=== PATIENT | female | born 1975 | race Caucasian/White ===

== ENCOUNTER → 2019-12-11 | Outpatient (CLI) | payer OTHER ==
--- NOTE | 2019-12-11 13:19 | US ---
EXAMINATION TYPE: US kidneys/renal and bladder DATE OF EXAM: 12/11/2019 COMPARISON: NONE CLINICAL HISTORY: R31.21 microscopic hematuria. Microscopic hematuria x many years. Back pain. No h x of renal stones. EXAM MEASUREMENTS: Right Kidney: 10.8 x 5.2 x 4.7 cm Left Kidney: 10.4 x 4.9 x 5.8 cm Right Kidney: Medial anechoic lesion at hilum = 1.7 x 1.1 cm Left Kidney: No hydronephrosis or masses seen Bladder: distended, anechoic Bilateral Jets seen There is no evidence for hydronephrosis at this point in time. No nephrolithiasis is seen. No madina s are identified. The urinary bladder is anechoic. Bilateral ureteral jets are seen. IMPRESSION: Medial cyst right kidney. Otherwise unremarkable study.
== END | disposition home or self-care (01) ==
LOC: RADUSWWP 12:14
PROVIDERS: ATTEND Family Medicine
DX: N28.1 Cyst of kidney, acquired (principal)
CPT/HCPCS: 76770

== ENCOUNTER → 2021-09-15 | Outpatient (CLI) | payer OTHER ==
[2021-09-15 09:16] LABS: INR 0.9 (<1.2); Partial Thromboplastin Time 25.9 sec (22.0-30.0)
[2021-09-15 10:40] LABS: Basophils # (A) 0.07 X 10*3/uL (0.00-0.10); Eosinophils # (A) 0.21 X 10*3/uL (0.04-0.35); HCT 46.9 % (37.2-46.3); HGB 15.3 g/dL (12.0-15.0); Immature Grans, Automated 0.3 %; Lymphocytes # (A) 2.18 X 10*3/uL (0.90-5.00); Lymphocytes % (A) 31.5 %; MCH 31.7 pg (27.0-32.0); MCHC 32.6 g/dL (32.0-37.0); MCV 97.3 fL (80.0-97.0); Mean Platelet Volume 9.3 fL (9.5-12.2); Monocytes # (A) 0.59 X 10*3/uL (0.20-1.00); Monocytes % (A) 8.5 %; NRBC Per 100 WBC 0 /100 WBCS (0.0-0.0); Neutrophils # (A) 3.86 X 10*3/uL (1.80-7.70); Neutrophils % (A) 55.7 %; Platelet Count 362 X 10*3/uL (140-440); RBC 4.82 X 10*6/uL (4.10-5.20); RDW 13.3 % (11.5-14.5); WBC 6.93 X 10*3/uL (4.50-10.00)
[2021-09-15 11:00] LABS: Follicle Stimulating Hormone 86.8 mIU/mL; Luteinizing Hormone 50.8 mIU/mL
[2021-09-15 11:05] LABS: ALT 16 U/L (8-44); AST 17 U/L (13-35); Albumin 4.9 g/dL (3.8-4.9); Albumin/Globulin Ratio 1.75 (1.60-3.17); Alkaline Phosphatase 51 U/L (41-126); Carbon Dioxide 25.8 mmol/L (20.0-27.5); Chloride 102 mmol/L (96-109); Ferritin 78.5 ng/mL (10.0-291.0); Globulin 2.8 g/dL (1.6-3.3); Glucose 101 mg/dL (70-110); Iron 72 ug/dL (50-170); LDL Cholesterol,Calculated 150.5 mg/dL (0.0-131.0); Non-African American GFR(CKD) 87.2 (60.0-200.0); Potassium 4.8 mmol/L (3.5-5.5); Sodium 139 mmol/L (135-145); Total Protein 7.7 g/dL (6.2-8.2)
[2021-09-15 11:18] LABS: % Iron Saturation 20.54 (12.00-45.00); Total Iron Binding Capacity 350 ug/dL (228-460)
[2021-09-15 11:27] LABS: Estradiol <5.0 pg/mL
== END | disposition home or self-care (01) ==
LOC: LABWHC1 08:02
PROVIDERS: ATTEND Physician Assistant Medical
DX: Z13.1 Encounter for screening for diabetes mellitus (principal); Z13.220 Encounter for screening for lipoid disorders; K92.0 Hematemesis; N64.3 Galactorrhea not associated with childbirth; R53.83 Other fatigue
CPT/HCPCS: 36415; 80053; 80061; 82306; 82607; 82670; 82728; 83001; 83002; 83036; 83540; 83550; 83970; 84146; 84439; 84443; 85025; 85610; 85730

== ENCOUNTER → 2023-01-05 | Outpatient (CLI) | payer OTHER ==
--- NOTE | 2023-01-06 08:35 | MM ---
Reason for Exam: Screening (asymptomatic). Last mammogram was performed 3 year(s) and 7 month(s) ago. Patient History: Menarche at age 7. First Full-Term at age 18. Hysterectomy at age 34. 2000, Incisional Biopsy on the Right side. Mother had breast cancer, age 61. Risk Values: Alysia 5 year model risk: 2.5%. NCI Lifetime model risk: 21.1%. Prior Study Comparison: 07/12/2017 Bilateral Screening Mammogram, [facility]. 06/28/2018 Bilateral Screening Mammogram, Unknown. 06/07/2019 Bilateral Screening Mammogram, [facility]. Tissue Density: The breast tissue is heterogeneously dense. This may lower the sensitivity of mammography. Findings: Analyzed By CAD. Stable diffuse bilateral benign-appearing calcifications. No mass or distortion. ASSESSMENT: 2 - Benign. Overall Assessment: Benign, BI-RAD 2 Management: Screening Mammogram of both breasts in 1 year. . Patient should continue monthly self-breast exams. A clinical breast exam by your physician is recommended on an annual basis. This exam should not preclude additional follow-up of suspicious palpable abnormalities. Note on Alysia scores and lifetime risk: 1. A Alysia score greater than 3% is considered moderate risk. If this is the case, consider specialist referral to assess eligibility for a risk reducing agent. 2. If overall lifetime risk for the development of breast cancer is 20% or higher, the patient may qualify for future screening with alternating mammogram and breast MRI. Electronically signed and approved by: Marquez Neal M.D. Radiologis
== END | disposition home or self-care (01) ==
LOC: RADMAMWWP 07:13
PROVIDERS: ATTEND Family Medicine
DX: Z12.31 Encounter for screening mammogram for malignant neoplasm of breast (principal); Z80.3 Family history of malignant neoplasm of breast
CPT/HCPCS: 77067

== ENCOUNTER → 2023-02-10 | Outpatient (CLI) | payer OTHER ==
--- NOTE | 2023-02-10 13:22 | CA ---
Exercise Stress Test Report Name: Radha Mcelroy Exam Date: 02/10/2023 09:04 Exam Location: [place] Stress Ht (in): 63 Wt (lb): 155 BSA: 1.74 Ordering Phys: Moises Lynn MD Referring Phys: Adore Henning PAC Technologist: Peyman Salinas Age: 47 Gender: F : 1975 Procedure CPT: Indications: Z73.89 PROBLEMS RELATED TO LIFE MANAGEMENT ICD-10 Codes: Patient History: Medications: Meds past 24 hrs: Pretest Chest Pain: STRESS TEST Aldo Protocol Exercise Duration (min:sec): 10:[address] Depressions (mm): 0 Angina Score: 0 Iglesias Score: 10 Resting HR (bpm): 75 Peak HR (bpm): 165 Resting BP (mmHg): 118 / 82 Peak BP (mmHg): 170 / 83 MPHR: 171 Target HR: 145 % MPHR: 96 METS: 12.1 Total Dose: Peak Dose: Atropine: Double Product: 12390 BP Response: Stress Termination: Reached target heart rate Stress Symptoms: No chest pain or symptoms Stress Summary: The patient's target heart rate was achieved ECG ANALYSIS Resting ECG: Sinus rhythm. Normal conduction. No arrhythmias. Normal repolarization. Stress ECG: No ECG evidence of ischemia with exercise. CONCLUSIONS Patient falls into low-risk group (DTS >= +5). This associates the patient with an annual CV mortality <= 0.5%. 1. Good exercise tolerance 2. Normal electrocardiographic response to exercise with no evidence of exercise-induced ischemia Dr. Malissa Cedillo MD (Electronically Signed) Final Date: 10 February 2023 13:21
== END | disposition home or self-care (01) ==
LOC: RADNMMAIN 08:33
PROVIDERS: ATTEND Family Medicine
DX: Z73.89 Other problems related to life management difficulty (principal)
CPT/HCPCS: 93017

== ENCOUNTER → 2024-10-02 | Outpatient (CLI) | payer OTHER ==
--- NOTE | 2024-10-02 11:28 | MM ---
Reason for Exam: Screening (asymptomatic). Last mammogram was performed 1 year(s) and 9 month(s) ago. Patient History: Menarche at age 7. First Full-Term at age 18. Hysterectomy at age 34. Patient has history of breast feeding. Endometrial cancer, age 18. Patient used Hormonal Contraceptives for 5 years. 1999, Incisional Biopsy on the Right side. Mother had breast cancer, age 61. Risk Values: Alysia 5 year model risk: 2.5%. NCI Lifetime model risk: 20.4%. Prior Study Comparison: 06/28/2018 Bilateral Screening Mammogram, Unknown. 06/07/2019 Bilateral Screening Mammogram, [facility]. 01/05/2023 Bilateral MG screening mammo w CAD, [facility]. Tissue Density: The breasts are heterogeneously dense, which may obscure small masses. Findings: Analyzed By CAD. Right breast: There is no suspicious group of microcalcifications or new suspicious mass. Left breast: There is no suspicious group of microcalcifications or new suspicious mass. Overall Assessment: Negative, BI-RAD 1 Management: Screening Mammogram of both breasts in [address] [facility] will attempt to contact patient to return for supplemental views and ultrasound if indicated. Patient should continue monthly self-breast exams. A clinical breast exam by your physician is recommended on an annual basis. This exam should not preclude additional follow-up of suspicious palpable abnormalities. Note on Alysia scores and lifetime risk: 1. A Alysia score greater than 3% is considered moderate risk. If this is the case, consider specialist referral to assess eligibility for a risk reducing agent. 2. If overall lifetime risk for the development of breast cancer is 20% or higher, the patient may qualify for future screening with alternating mammogram and breast MRI. [facility], , 10/02/2024 11:25 AM. Electronically signed and approved by: Aj Vernon DO
== END | disposition home or self-care (01) ==
LOC: RADMAMWWP 10:51
PROVIDERS: ATTEND Family Medicine
DX: Z12.31 Encounter for screening mammogram for malignant neoplasm of breast (principal); R92.333 Mammographic heterogeneous density, bilateral breasts; Z92.0 Personal history of contraception; Z80.3 Family history of malignant neoplasm of breast
CPT/HCPCS: 77067